=== PATIENT | male | born 1965 | race Caucasian/White ===

== ENCOUNTER 2021-09-29 10:22 | Emergency (ER) | payer BC ==
[~2021-09-29] VITALS: Ht 185.4 cm; Wt 74.8 kg
[2021-09-29] MEDS ORDERED: AMOXICILLIN 50500 MG PO (10:38)
[2021-09-29] MEDS ORDERED: HYDROCODON-ACE1 EAC7 PO (10:38)
[2021-09-29] MEDS ORDERED: PERIDEX 0.12%473 M1 SWISH&SPIT (10:43)
[2021-09-29 10:57] VITALS: BP 141/86
== END 2021-09-29 10:57 | disposition home or self-care (01) ==
LOC: M.ERS 10:22
DX: K08.89 Other specified disorders of teeth and supporting structures (principal)